=== PATIENT | male | born 1960 | race Caucasian/White ===

== ENCOUNTER 2024-04-09 14:21 | Outpatient (CLI) | payer BC | END 2024-04-09 14:22 | disposition home or self-care (01) | LOC: CSHMRI 14:21 | PROVIDERS: ATTEND Neurological Surgery | DX: M48.02 Spinal stenosis, cervical region (principal); M47.812 Spondylosis without myelopathy or radiculopathy, cervical region | CPT/HCPCS: 72040; 72141 ==